=== PATIENT | male | born 1990 | race American Indian/Alaskan Native ===

== ENCOUNTER 2018-08-26 21:29 | Emergency (ER) | payer OTHER ==
[2018-08-26 21:38] VITALS: TEMP 98; BMI 25.7
[2018-08-26] MEDS ORDERED: TDAP Vaccine 0.5 mL Syr IM ONE (22:03)
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
[2018-08-27 00:28] VITALS: BP 118/68; PULSE 99; RESP 16; O2SAT 100
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
== END 2018-08-27 00:27 | disposition home or self-care (01) ==
LOC: ED 21:29
DX: S09.93XA Unspecified injury of face, initial encounter (principal); S50.311A Abrasion of right elbow, initial encounter; S80.212A Abrasion, left knee, initial encounter; S80.211A Abrasion, right knee, initial encounter; Y08.89XA Assault by other specified means, initial encounter; F10.129 Alcohol abuse with intoxication, unspecified; Z23 Encounter for immunization